=== PATIENT | female | born 1940 | race Caucasian/White ===

== ENCOUNTER 2022-11-25 23:30 | Inpatient (IN) ==
[2022-11-26] MEDS ORDERED: NS 0.9% 1000 ml BAG 1,000 ML IV ONE (00:02)
[2022-11-26 01:02] LABS: Activated Partial Thrombo Time 32.1 seconds (26.0-38.0); INR 1.12 (0.83-1.13)
[2022-11-26 01:04] LABS: ABS Lymphocytes 0.4 10^3/uL (1.0-4.8); ABS Monocytes 0.3 10^3/uL (0.0-0.9); ABS Neutrophils 4.8 10^3/uL (1.5-7.6); Hematocrit 30.9 % (35-45); Hemoglobin 10.7 g/dL (11.5-14.3); Lymphocyte % 6.4 %; Mean Corpuscular Hemoglobin 31.1 pg (27-33); Mean Corpuscular Hgb Conc 34.8 g/dL (31-36); Mean Corpuscular Volume 89.4 fL (80-97); Mean Platelet Volume 8.5 fL (7.5-11.2); Nucleated Red Blood Cells % 0.1 /100 WBC (0.0-0.4); Platelet Count 152 10^3/uL (150-450); Red Blood Count 3.45 10^6/uL (3.63-4.92); Red Cell Distribution Width 13.4 % (12-17); White Blood Count 5.5 10^3/uL (3.8-11.8)
[2022-11-26 01:06] LABS: Albumin 3.1 g/dL (3.2-5.2); Calcium 7.6 mg/dL (8.6-10.3); Potassium 3.5 mmol/L (3.5-5.0); Total Bilirubin 0.6 mg/dL (0.2-1.0)
[2022-11-26 01:12] LABS: Albumin/Globulin Ratio 1.2 (1-3); Creatinine, Serum 0.72 mg/dL (0.51-0.95); Globulin 2.6 g/dL (2-4); Total Protein 5.7 g/dL (6.4-8.9); eGFR CKD-EPI 83.4 (>60)
[2022-11-26] MEDS: NORMOSOL R PH IV ONE ×2 (01:24→03:17)
[2022-11-26 01:45] LABS: C Reactive Protein 19.97 mg/L (<8.01)
[2022-11-26 02:12] LABS: High Sensitivity Troponin 1 Hr 255 pg/mL (<15)
[2022-11-26 03:15] LABS: Urine Appearance Cloudy; Urine Bilirubin Negative (Negative); Urine Blood 1+ (Negative); Urine Color Yellow; Urine Glucose 3+(>=500 mg/dL) (Negative); Urine Ketones Negative (Negative); Urine Nitrite Negative (Negative); Urine Protein 2+(100 mg/dL) (Negative); Urine Specific Gravity 1.014 (1.002-1.030); Urine Urobilinogen Negative (Negative)
[2022-11-26 03:20] LABS: Urine Bacteria 1+ (Absent); Urine Red Blood Cell 2+(6-10/hpf) (Absent); Urine Squamous Epithelial Cell Present (Absent); Urine White Blood Cell 3+(>20/hpf) (Absent)
[2022-11-26] MEDS ORDERED: cefTRIAXone 1 gm/50 mL D5W 1 GM/50 ML BAG IV ONE (04:35)
[2022-11-26] MEDS ORDERED: Al Hydrox/Mg Hydrox/Simet LIQ 30 ML UDC PO PRN (11:50)
[2022-11-27] MEDS ORDERED: cefTRIAXone 1 gm/50 mL D5W 1 GM/50 ML BAG IV SCH (05:00)
[2022-11-27 05:08] LABS: Hematocrit 30.4 % (35-45); Hemoglobin 10.5 g/dL (11.5-14.3); Mean Corpuscular Hemoglobin 30.9 pg (27-33); Mean Corpuscular Hgb Conc 34.6 g/dL (31-36); Mean Corpuscular Volume 89.3 fL (80-97); Mean Platelet Volume 8.3 fL (7.5-11.2); Platelet Count 146 10^3/uL (150-450); Red Cell Distribution Width 13.4 % (12-17); White Blood Count 3.8 10^3/uL (3.8-11.8)
[2022-11-27 05:35] LABS: Calcium 7.4 mg/dL (8.6-10.3); Creatinine, Serum 0.64 mg/dL (0.51-0.95); Magnesium 1.1 mg/dL (1.9-2.7); Potassium 3.5 mmol/L (3.5-5.0); eGFR CKD-EPI 88.2 (>60)
[2022-11-27 07:46] LABS: ABS Lymphocytes 0.9 10^3/uL (1.0-4.8); ABS Monocytes 0.6 10^3/uL (0.0-0.9); ABS Neutrophils 2.4 10^3/uL (1.5-7.6); Lymphocyte % 22.8 %; Nucleated Red Blood Cells % 0.1 /100 WBC (0.0-0.4); RBC Morphology Normal (Normal)
[2022-11-27] MEDS ORDERED: Magnesium Sulf 4 GM/100 ML IV 4,000 MG/100 ML BAG IVPB ONE (08:03)
[2022-11-27] MEDS ORDERED: Regadenoson 0.4 MG/5 ML SYRINGE ONE (09:31)
[2022-11-27] MEDS ORDERED: Dextrose 50% Syringe 50 ml 25 GM/50 ML SYRINGE IV PUSH PRN (11:15)
[2022-11-27] MEDS: Enoxaparin 40 MG/0.4 ML SYR SUBCUT SCH (13:12)
[2022-11-28] MEDS ORDERED: cefTRIAXone 1 gm/50 mL D5W 1 GM/50 ML BAG IV SCH (05:00)
[2022-11-28 06:21] LABS: HDL Cholesterol 23.2 mg/dL; Magnesium 1.5 mg/dL (1.9-2.7)
[2022-11-28] MEDS ORDERED: Furosemide 40 mg/4 ml IV VIAL IV ONE (11:35)
[2022-11-28] MEDS ORDERED: Magnesium Sulf 4 GM/100 ML IV 4,000 MG/100 ML BAG IVPB ONE (11:35)
[2022-11-28] MEDS: Enoxaparin 40 MG/0.4 ML SYR SUBCUT SCH (12:18)
[2022-11-28 13:55] VITALS: BP 149/64
== END 2022-11-28 15:55 | disposition home or self-care (01) | DRG 871 ==
LOC: ED 23:30 → EDHOLD 11-26 11:50 → SUATTDRO 11-26 11:50 → EDHOLD 11-27 07:44 → MED 11-27 15:13
PROVIDERS: ADMIT Internal Medicine; ATTEND Internal Medicine